=== PATIENT | female | born 2000 | race Two or more races ===

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

== ENCOUNTER 2020-02-28 13:23 | Emergency (ER) | payer MEDICAID, SELFPAY ==
[2020-02-28 14:13] VITALS: BP 134/60
--- NOTE | 2020-02-28 14:22 | ER Document Report ---
HPI - HPI Onset: Other - 02/20/2020 Onset/Duration: Gradual, Persistent Quality of pain: Achy, Sharp Severity: Mild Pain Level: 1 Context: 19-year-old female presented to ED for complaint of fever, chills, muscle aches, runny nose, sore throat, cough, shortness of breath with nausea and vomiting, headache and abdominal pain since February 19. She states she has had these symptoms in the past. She states she just was not getting better and had called the [employer] line a couple times. She stated that because she was feeling worse 800-number sent her to the emergency room and they sent her over to the [facility] to be evaluated. 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 She states she did quit smoking about 2 to 3 months ago. Associated Symptoms: Allergy/hay fever, Body/muscle aches, Chills, Nonproductive cough, Fever, Nausea, Vomiting, Rhinnorhea, Sinus pain/drainage, Shortness of breath, Sore throat Exacerbated by: Denies Relieved by: Denies Similar symptoms previously: Yes Recently seen / treated by doctor: No - ROS ROS below otherwise negative: Yes - CONSTITUTIONAL Constitutional: REPORTS: Fever, Chills - EENT EENT: REPORTS: Sore Throat, Nasal Drainage-Purulent - NEURO Neurology: REPORTS: Headache - RESPIRATORY Respiratory: REPORTS: Coughing - GASTROINTESTINAL Gastrointestinal: REPORTS: Abdominal Pain, Nausea, Patient vomiting Past Medical History - General Information source: Patient - Social History Smoking Status: Former Smoker Frequency of alcohol use: None Drug Abuse: None Lives with: Family Family History: Reviewed & Not Pertinent - Medical History Medical History: Other - Bisi-Danlos syndrome - Past Medical History Cardiac Medical History: Reports: Hx Heart Murmur Pulmonary Medical History: Reports: Hx Asthma Neurological Medical History: Reports: Hx Migraine Endocrine Medical History: Reports: None Renal/ Medical History: Reports: None Malignancy Medical History: Reports: None GI Medical History: Reports: None Musculoskeletal Medical History: Reports None Skin Medical History: Reports None Psychiatric Medical History: Reports: None Traumatic Medical History: Reports: None Infectious Medical History: Reports: None Surgical Hx: Negative Past Surgical History: Reports: None - Immunizations Immunizations up to date: Yes Hx Diphtheria, Pertussis, Tetanus Vaccination: Yes Vertical Provider Document - CONSTITUTIONAL Notes: PHYSICAL EXAMINATION: GENERAL: Well-appearing, well-nourished and in no acute distress. HEAD: Atraumatic, normocephalic. EYES: Pupils equal round extraocular movements intact, conjunctiva are normal. ENT: Nasal drainage with postnasal drip cobblestone pattern to the oral mucosa NECK: Normal range of motion LUNGS: No respiratory distress Musculoskeletal: Normal range of motion NEUROLOGICAL: Normal speech, normal gait. PSYCH: Normal mood, normal affect. SKIN: Warm, Dry, normal turgor, no rashes or lesions noted. - INFECTION CONTROL TRAVEL OUTSIDE OF THE [place] IN LAST 30 DAYS: No Course - Re-evaluation Re-evalutation: 02/28/20 14:37 Patient presents with upper respiratory symptoms worrisome for possible Covid 19. Patient appears suitable for discharge. Patient's vital signs are stable and patient is nontoxic in appearance. Good return precautions have been discussed with patient, patient verbalized understanding and is agreeable with discharge plan of care at this time. 02/28/20 14:38 02/28/20 14:55 Patient notified of Negative results for Rapid Flu (A & B) and Rapid Strep. Patient also advised of PENDING results for Throat Culture and COVID- 19. Discharge - Discharge Clinical Impression: Viral respiratory illness, Covid 19 screening Condition: Stable Disposition: HOME, SELF-CARE Additional Instructions: Patient was provided with discharge information including: As a person under investigation for Covid 19, the [place] department of Health and Human Services, division of public health advises you to adhere to the following guidance until your test results are reported to you. If your test result is positive, you will receive additional information from your provider and your local health department at that time. Remain at home until you are cleared by the health provider or public health authorities. Keep a log of visitors to your home, notify any visitors to your home of your isolation status. If you plan to move to a new address or leave the county, notify the local health department in your County. Call your doctor or seek care if you have an urgent medical need. Before seeking medical care, call ahead to get instructions from the provider before arriving at the medical office clinic or hospital. Notify them that you are being tested for the virus that causes Covid 19 so that arrangements can be made, as necessary, to prevent transmission to others in the healthcare setting. Next, notify the local health department in your county. If a medical emergency arises and you need to call 911, inform the first responders that you are being tested for the virus that causes Covid 19. Next, notify the local health department in your county. Referrals: LOCALMD,NO [Primary Care Provider] - Follow up as needed
[2020-02-28 14:45] LABS: A TYPE INFLUENZA AG NEGATIVE (NEGATIVE); B INFLUENZA AG NEGATIVE (NEGATIVE)
== END 2020-02-28 15:23 | disposition home or self-care (01) ==
LOC: EDRDC 13:23
DX: J02.9 Acute pharyngitis, unspecified (principal); B34.8 Other viral infections of unspecified site; R09.89 Other specified symptoms and signs involving the circulatory and respiratory systems; R50.9 Fever, unspecified; R51 Headache; Z20.828 Contact with and (suspected) exposure to other viral communicable diseases
CPT/HCPCS: 87070; 87635; 87804; 87880; 99211